=== PATIENT | male | born 2000 | race Caucasian/White ===

== ENCOUNTER 2025-02-03 12:15 | Emergency (ER) | payer OTHER, SELFPAY ==
[2025-02-03 12:26] VITALS: BP 121/79; PULSE 72; RESP 18; TEMP 36.6; O2SAT 99
--- NOTE | 2025-02-03 12:40 | ED_ITS ---
HPI - General Adult General Chief complaint: Unspecified Stated complaint: Right and Left Wrist Pain/Jaw Pain Time Seen by Provider: 02/03/25 12:41 Source: patient Mode of arrival: ambulatory Limitations: no limitations History of Present Illness HPI narrative: 24-year-old male presents with concern for bilateral wrist and jaw pain. He has a history of rheumatoid arthritis, he takes Humira. He reports he is been prolonging periods of time between the Humira doses to make it last longer because his insurance is not sending enough. 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 MD complaint: Joint pain Related Data Allergies Allergy/AdvReac Type Severity Reaction Status Date / Time No Known Allergies Allergy Verified 02/03/25 12:32 Review of Systems Review of Systems: CONSTITUTIONAL: Denies malaise, chills, sweats, or fever. MUSCULOSKELETAL: Reports bilateral wrist pain and jaw pain All systems reviewed & are unremarkable except as noted in HPI and below PMFSH Comments At time of signature, agree with nursing past medical, surgical, social and family history. There is no relevant family history pertinent to the presenting complaint Exam Narrative: GENERAL: Well-appearing, well-nourished, and in no acute distress. HEAD: Normocephalic, atraumatic. EYES: PERRLA, sclera clear ENT: Nares clear. Mucous membranes moist. NECK: Supple. CHEST: No respiratory distress. Speaks in full sentences. HEART: Regular rate and rhythm. EXTREMITIES: Normal range of motion. SKIN: Warm, dry, no visible rash. NEURO: Alert and oriented x3. PSYCH: Normal mood and affect Course Course Emergency Course: Patient is aware of diagnosis, understands and agrees to treatment plan. Anticipatory guidance given. Patient agrees to follow-up as directed and is aware of reasons to seek care at the emergency department. Portions of this record may have been created with voice recognition software Level of Care: Express Care Visit Vital Signs Vital signs: Vital Signs Temperature 98 F 02/03/25 12:26 Pulse Rate 72 02/03/25 12:26 Respiratory Rate 18 02/03/25 12:26 Blood Pressure 121/79 02/03/25 12:26 Pulse Oximetry 99 02/03/25 12:26 Oxygen Delivery Room Air 02/03/25 12:26 Temperature 98 F 02/03/25 12:26 Pulse Rate 72 02/03/25 12:26 Respiratory Rate 18 02/03/25 12:26 Blood Pressure 121/79 02/03/25 12:26 Pulse Oximetry 99 02/03/25 12:26 Oxygen Delivery Room Air 02/03/25 12:26 Reviewed. Medical Decision Making MDM Narrative Medical decision making narrative: The patient was evaluated by myself in the [facility] care. History is obtained from patient who is an independent historian and physical exam was performed.? Available medical records were reviewed at this time. ? Exam findings show no acute concerns or changes; patient is non-toxic appearing and is in no distress. Patient is appropriate for outpatient treatment and follow-up. ? I have evaluated and discussed social determinants of health with the patient that could potentially impact subsequent diagnosis and treatment plans. ? Differential diagnosis and treatment plan were discussed with the patient. Patient agrees with discussion and after shared medical decision making agrees with plan of care. All questions were answered to the patient's satisfaction. Vital Signs Vital Signs: Vital Signs Temperature 98 F 02/03/25 12:26 Pulse Rate 72 02/03/25 12:26 Respiratory Rate 18 02/03/25 12:26 Blood Pressure 121/79 02/03/25 12:26 Pulse Oximetry 99 02/03/25 12:26 Oxygen Delivery Room Air 02/03/25 12:26 Temperature 98 F 02/03/25 12:26 Pulse Rate 72 02/03/25 12:26 Respiratory Rate 18 02/03/25 12:26 Blood Pressure 121/79 02/03/25 12:26 Pulse Oximetry 99 02/03/25 12:26 Oxygen Delivery Room Air 02/03/25 12:26 Critical Care Time Critical Care Time Critical Care Time: No Discharge Plan Discharge Clinical Impression: Flare of rheumatoid arthritis Patient Disposition: Home Condition: Stable Instructions: Rheumatoid Arthritis (ED) Additional Instructions: 1) Please follow-up with your primary care doctor or factory manager. 2) If you have any urgent concerns please go to the ER. 3) Please take medications as prescribed and continue taking your home medications as usual. 4) Please read and follow information included in discharge instructions. Patient Language: Guyanese Prescriptions: New prednisone 50 mg tablet 50 mg PO DAILY 5 Days Qty: 5 0RF Follow-up/Referrals: PHYSICIAN,SEED COLLECTOR [Primary Care Provider, Internal Medicine] Time of Disposition: 12:47
== END 2025-02-03 12:50 | disposition home or self-care (01) ==
PROVIDERS: Emergency Provider Nurse Practitioner
DX: M06.9 Rheumatoid arthritis, unspecified (principal); Z79.899 Other long term (current) drug therapy
CPT/HCPCS: 99203; G0463